=== PATIENT | male | born 1970 | race Two or more races ===

== ENCOUNTER → 2018-12-11 | Outpatient (CLI) | payer OTHER | END | disposition home or self-care (01) | LOC: LABMN 12:03 | PROVIDERS: ATTEND Internal Medicine | DX: Z02.1 Encounter for pre-employment examination (principal) | CPT/HCPCS: 86735; 86762; 86765 ==

== ENCOUNTER → 2021-06-20 | Outpatient (CLI) | payer OTHER ==
[2021-06-20 23:11] LABS: COVID AG,FIA SOURCE NASOPHARYNGEAL
== END | disposition home or self-care (01) ==
LOC: ECOV 22:23
PROVIDERS: ATTEND Internal Medicine Cardiovascular Disease
DX: Z20.822 Contact with and (suspected) exposure to COVID-19 (principal)

== ENCOUNTER 2022-05-21 20:06 | Emergency (ER) | payer BC, OTHER ==
[~2022-05-21] VITALS: Ht 180.3 cm; Wt 199.0 kg
[2022-05-21 21:15] LABS: COVID AG,FIA SOURCE NASAL SWAB
[2022-05-21 21:23] LABS: INFLUENZA TYPE A NEGATIVE FOR TYPE A (NEGATIVE); INFLUENZA TYPE B NEGATIVE FOR TYPE B (NEGATIVE)
[2022-05-21 22:42] VITALS: BP 152/82
== END 2022-05-21 22:45 | disposition home or self-care (01) ==
LOC: EMS 20:07
DX: E11.9 Type 2 diabetes mellitus without complications (principal); Z20.822 Contact with and (suspected) exposure to COVID-19
CPT/HCPCS: 99283; 87426; 87804; U0003

== ENCOUNTER 2024-05-19 13:15 | Emergency (ER) | payer OTHER ==
[~2024-05-19] VITALS: Ht 180.3 cm; Wt 204.6 kg
[2024-05-19 13:48] VITALS: BP 131/66; PULSE 16; RESP 16; TEMP 98.3; O2SAT 99
[2024-05-19] MEDS: BACITRACIN 0.9 GM PACKET OINTMENT TP ONE (16:02)
== END 2024-05-19 16:17 | disposition home or self-care (01) ==
LOC: EMS 13:15
DX: S60.512A Abrasion of left hand, initial encounter (principal); E11.9 Type 2 diabetes mellitus without complications; W26.8XXA Contact with other sharp object(s), not elsewhere classified, initial encounter; Y93.89 Activity, other specified; Y92.89 Other specified places as the place of occurrence of the external cause; Y99.8 Other external cause status
CPT/HCPCS: 99282; Z7502; Z7610